=== PATIENT | male | born 1970 | race Caucasian/White ===

== ENCOUNTER → 2022-11-13 10:35 | Outpatient (CLI) | payer OTHER, SELFPAY ==
--- NOTE | 2022-11-13 | DI.NM.S_ITS ---
PROCEDURE: NM ALIVIA PERF SPECT REST & STR Rest and exercise myocardial perfusion SPECT with gated imaging and ejection fraction RADIOPHARMACEUTICAL: 12.2 mCi Tc-99m sestamibi IV at rest and 25.7 mCi Tc-99m sestamibi IV at peak exercise. A [id number]-dwkaovda was performed. INDICATIONS: OTHER FORM OF DYSPNEA TECHNIQUE: Radiopharmaceutical was injected at peak stress test, and also at rest. SPECT images were obtained. SPECT myocardial perfusion images were displayed in short axis, horizontal long axis, and vertical long axis views. Gated images were reviewed using Automated Insights software. COMPARISON: None. CARDIAC STRESS: A standard Mukesh treadmill exercise tolerance test was performed by the patient under the supervision of an attending staff. The patient exercised for 9 minutes and 34 seconds; 10.1 METS; functional aerobic impairment ([place]) is +6%. Hemodynamic data: There is normal blood pressure and heart rate response to exercise stress. Patient achieved 97% of maximum predicted heart rate at peak exercise. Maximum blood pressure 200/100. Symptoms: Patient denied chest pain during exercise. EKG: No diagnostic EKG changes of ischemia; no ectopy. FINDINGS: Raw data: There is good myocardial labeling by radiotracer. No significant motion artifacts. Ysjh-ko-vjlzu ratio is 0.36 (normal is less than 0.38 for sestamibi tracer, and less than 0.50 for thallium tracer). Left ventricle function: Gated images demonstrate normal left ventricle wall thickening. No segmental wall motion abnormality. No transient ischemic dilation; TID is 0.69 (normal less than 1.3). The left ventricle resting end-diastolic volume is 108 mL. Left ventricle stress ejection fraction is >75%; normal values are above 45%. Myocardial perfusion: There is normal distribution of activity in the left and right ventricular myocardium. No fixed or reversible perfusion defects. IMPRESSION: Low risk study. No evidence of exercise-induced ischemia on ECG or SPECT imaging. Normal LV size and function. Normal hemodynamic response to exercise. Normal exercise capacity. Dictated by: Radha Hawthorne D.O. on 11/14/2022 at 16:20 Approved by: Radha Hawthorne D.O. on 11/14/2022 at 16:23
== END ==
PROVIDERS: PCP Physician Assistant; Referring Provider Physician Assistant; Visit Provider Physician Assistant
DX: R06.09 Other forms of dyspnea (principal)
CPT/HCPCS: 78452; 93017; A9502

== ENCOUNTER → 2022-11-15 06:30 | Outpatient (CLI) | payer OTHER, SELFPAY ==
--- NOTE | 2022-11-15 06:31 | DI.ECHO.S_ITS ---
[place] +---------+ [facility] +---------+ : : [address] : [address] : : : : [id number] : : : : Phone: [phone]+ Echocardiogram Report + + :Name: PATRICIA ROMANO Study Date: 11/15/2022 Height: 70 in : :[facility] ReadingLocation: Weight: 178 lb : : Gender: Male BSA: 2.0 m2 : :: 1970 Age: 52 yrs BP: 140/102 mmHg: :Reason For Study: DYSPNEA : :Ordering Physician: CHRIS, : :RONEL Cadet Performed By: Richelle Silvestre : :Referring: RONEL PEREZ : + + Interpretation Summary The ejection fraction is estimated to be 55-60%. Diastolic parameters suggest probable normal left ventricular diastolic function and normal filling pressures. The right ventricle is normal in size and function. No significant valvular abnormalities. Unable to estimate PASP. Procedure: A two-dimensional transthoracic echocardiogram with color flow and Doppler was performed. The study quality was technically adequate. There is no prior echocardiogram noted for this patient. The patient was in sinus bradycardia with heart rates between 52-60 bpm during the exam. Left Ventricle: The left ventricle is normal in size and wall thickness. The ejection fraction is estimated to be 55-60%. Diastolic parameters suggest probable normal left ventricular diastolic function and normal filling pressures. Right Ventricle: The right ventricle is normal in size and function. Atria: The left atrial size is normal. Right atrial size is normal. There is no Doppler evidence for an interatrial shunt. Mitral Valve: The mitral valve is normal in structure and function. There is trace mitral regurgitation. Aortic Valve: The aortic valve is trileaflet. The aortic valve opens well. There is no aortic valve stenosis. No aortic regurgitation is present. Tricuspid Valve: The tricuspid valve is normal in structure and function. There is trace tricuspid regurgitation. Pulmonary artery pressures cannot be estimated because of the lack of a measurable TR jet velocity. Pulmonic Valve: The pulmonic valve leaflets are thin and pliable; valve motion is normal. There is no pulmonic valvular regurgitation. Great Vessels: The aortic root is normal size. The dimensions of the ascending aorta are normal. The IVC is of normal diameter and collapses greater than 50% with a sniff. This suggests a low right atrial pressure of 3 mm Hg. Pericardium/ Pleura There is no pericardial effusion. There is no pleural effusion. MMode/2D Measurements & Calculations LVIDd: 4.4 cm Ao root diam: 3.2 cm LVIDs: 3.3 cm asc Aorta Diam: 3.8 cm FS: 25.0 % Ao Arch Diam (Prox Trans): 2.6 cm EPSS: 0.58 cm IVSd: 0.94 cm LVPWd: 0.67 cm LV ann. diameter/BSA (cm/m^2): 2.2 LV sys. diameter/BSA (cm/m^2): 1.7 LA A2 area: 17.2 cm2 RA long axis: 4.6 cm LA A4 area: 16.0 cm2 RA area: 15.8 cm2 LA length (vol): 5.0 cm RA vol: 46.1 ml LA vol: 46.5 ml RA : 23.2 ml/m2 LA vol index: 23.4 ml/m2 IVC diam: 1.9 cm RVD1 (basal): 3.6 cm RVD2 (mid): 3.0 cm TAPSE: 1.6 cm Doppler Measurements & Calculations Ao V2 max: 115.9 cm/sec LVOT Max [place]: 108.0 cm/sec Ao V2 mean: 79.2 cm/sec LV V1 max P.7 mmHg Ao max P.4 mmHg LV V1 VTI: 23.1 cm Ao mean P.8 mmHg sev ratio: 0.89 Ao V2 VTI: 25.9 cm MV E max elgin: 73.9 cm/sec TR max elgin: 197.3 cm/sec MV A max elgin: 57.6 cm/sec TR max P.6 mmHg MV E/A: 1.3 PA V2 max: 73.9 cm/sec Med Peak E' Elgin: 6.8 cm/sec PA V2 mean: 56.2 cm/sec E/E' med: 10.9 PA mean P.4 mmHg Lat Peak E' Elgin: 9.5 cm/sec PA pr(Accel): 20.8 mmHg E/E' lat: 7.8 E/e' average: 9.3 MV dec time: 0.18 sec Reading Physician:08:39 AM
== END ==
PROVIDERS: PCP Physician Assistant; Referring Provider Physician Assistant; Visit Provider Physician Assistant
DX: R06.09 Other forms of dyspnea (principal)
CPT/HCPCS: 93306